=== PATIENT | female | born 1955 ===

== ENCOUNTER → 2018-08-12 13:56 | Outpatient (REF) | payer OTHER, SELFPAY ==
[2018-08-12 15:46] LABS: Alanine Aminotransferase 41 IU/L (9-52); Albumin 4.6 g/dL (3.5-5.0); Albumin Globulin Ratio 1.6 (1.0-2.8); Alkaline Phosphatase 73 U/L (38-126); Aspartate Aminotransferase 33 IU/L (14-36); BUN Creatinine Ratio 37.5 (6-22); Bilirubin Total 0.7 mg/dL (0.2-1.3); Blood Urea Nitrogen 15 mg/dL (7-17); Calcium 9.7 mg/dL (8.4-10.2); Carbon Dioxide 27 mmol/L (22-32); Chloride 101 mmol/L (98-107); Cholesterol 232 mg/dL (140-199); Estimated Glomerular Filt Rate > 60.0 mL/min (>60); Globulin 2.9 g/dL (1.7-4.1); Glucose 78 mg/dL (80-110); HDL Cholesterol 78 mg/dL (40-60); HEMOLYSIS < 15 (0-50); LDL Cholesterol Calculated 135 mg/dL (<100); Potassium 3.6 mmol/L (3.4-5.1); Sodium 137 mmol/L (137-145); Total Protein 7.5 g/dL (6.3-8.2); Triglycerides 93 mg/dL (35-150)
[2018-08-12 16:15] LABS: Thyroid Stimulating Hormone 5.88 uIU/mL (0.47-4.68)
== END ==
LOC: LAB 13:56
PROVIDERS: Visit Provider Family Medicine
DX: Z13.6 Encounter for screening for cardiovascular disorders (principal); Z13.1 Encounter for screening for diabetes mellitus; Z13.228 Encounter for screening for other metabolic disorders
CPT/HCPCS: 36415; 80053; 80061; 84443

== ENCOUNTER → 2018-09-24 19:30 | Outpatient (ROUT) | payer OTHER, SELFPAY ==
[2018-09-24 20:03] LABS: Alanine Aminotransferase 25 IU/L (9-52); Aspartate Aminotransferase 24 IU/L (14-36); Cholesterol 171 mg/dL (140-199); HDL Cholesterol 73 mg/dL (40-60); LDL Cholesterol Calculated 70 mg/dL (<100); Triglycerides 142 mg/dL (35-150)
[2018-09-24 20:32] LABS: Thyroid Stimulating Hormone 0.68 uIU/mL (0.47-4.68)
== END ==
PROVIDERS: Visit Provider Family Medicine
DX: E78.5 Hyperlipidemia, unspecified (principal); E03.9 Hypothyroidism, unspecified; E78.00 Pure hypercholesterolemia, unspecified
CPT/HCPCS: 36415; 80061; 84443; 84450; 84460